=== PATIENT | male | born 1955 | race Caucasian/White ===

== ENCOUNTER 2021-11-21 17:18 | Emergency (ER) | payer MEDICARE ==
[~2021-11-21] VITALS: Ht 172.7 cm; Wt 95.5 kg
[2021-11-21 18:14] VITALS: TEMP 98.1
[2021-11-21 19:56] LABS: BASO # 0.1 K/mm3 (0.0-0.2); BASO % 0.9 % (0.0-2.0); EOS # 0.2 K/mm3 (0.0-0.7); EOS % 2.2 % (0.0-4.0); GRAN # 6.1 K/mm3 (1.4-6.5); GRAN % 69.1 % (42.2-75.2); HEMATOCRIT 45.1 % (42.0-52.0); HEMOGLOBIN 16.3 g/dl (13.5-18.0); LYMPH # 1.6 K/mm3 (1.2-3.4); LYMPH % 18.3 % (20.0-51.0); MEAN CELL VOLUME 82 fl (80.0-100.0); MEAN CORPUSCULAR HEMOGLOBIN 30 pg (27-31); MEAN CORPUSCULAR HGB CONC 36 g/dl (33.0-37.0); MEAN PLATELET VOLUME 9.8 fl (7.4-10.4); MONO # 0.8 K/mm3 (0.1-0.6); MONO % 9.3 % (1.7-9.3); PLATELET COUNT 199 K/mm3 (130-400); RED BLOOD COUNT 5.48 M/mm3 (4.20-5.60)
[2021-11-21 20:12] LABS: INR 2.9 (0.8-3.0); PROTHROMBIN TIME 32.2 SECONDS (9.7-12.8)
[2021-11-21 21:05] VITALS: BP 131/88; PULSE 98
== END 2021-11-21 21:05 | disposition home or self-care (01) ==
LOC: COL.ER 17:18
PROVIDERS: Family Medicine
DX: H11.31 Conjunctival hemorrhage, right eye (principal); Z79.01 Long term (current) use of anticoagulants

== ENCOUNTER 2022-07-21 06:58 | Day surgery (SDC) | payer MEDICARE ==
[~2022-07-21] VITALS: Ht 172.7 cm; Wt 91.0 kg
[2022-07-21 07:27] VITALS: BP 129/78; PULSE 70; TEMP 97.6
[2022-07-21] MEDS ORDERED: COZAAR100 MG PO (07:44)
[2022-07-21] MEDS ORDERED: HCTZ 25MG TAB25 MG PO (07:45)
[2022-07-21] MEDS ORDERED: COUMADIN 5MG5 MG/TAB PO (07:45)
[2022-07-21] MEDS ORDERED: NORVASC 5MG5 MG/TAB PO (07:45)
[2022-07-21] MEDS ORDERED: LIPITOR 80MG80 MG PO (07:45)
[2022-07-21 08:40] VITALS: BP 120/77; PULSE 64; TEMP 97.8
--- NOTE | 2022-07-21 08:40 | NUR ---
Patient arrives to [facility] via cart, accompanied by Endo RN. He is alert and oriented. He ambulates to the chair in his room with standby assist. PIV is to TKO. VSS and WNL on room air. He is offered and receives coffee and a muffin.
[2022-07-21 08:55] VITALS: BP 128/84; PULSE 86
--- NOTE | 2022-07-21 08:55 | NUR ---
Dr. Serrano comes to the bedside and talks with the patient at this time.
[2022-07-21 09:10] VITALS: BP 143/87; PULSE 64
--- NOTE | 2022-07-21 09:10 | NUR ---
Patient has met discharge criteria. Discharge instructions are discussed. He denies any questions and verbalizes understanding. PIV is removed with catheter intact and hemostasis achieved. He changes to his clothing independently.
--- NOTE | 2022-07-21 09:33 | NUR ---
Patient is escorted to the exit via wheelchair by staff. He is discharged to the care of his son, who drives him home in a private vehicle at 0933.
== END 2022-07-21 09:33 | disposition home or self-care (01) ==
LOC: SDCO 06:58
DX: D12.3 Benign neoplasm of transverse colon (principal); K63.5 Polyp of colon; K63.89 Other specified diseases of intestine; K51.40 Inflammatory polyps of colon without complications; Z12.11 Encounter for screening for malignant neoplasm of colon; K62.89 Other specified diseases of anus and rectum
CPT/HCPCS: J2704; J7030